=== PATIENT | female | born 1975 | race Caucasian/White ===

== ENCOUNTER 2018-07-19 07:57 | Day surgery (SDC) | payer BC ==
[2018-07-18 11:49] VITALS: BMI 19.3
[2018-07-19] MEDS ORDERED: MIDAZOLAM HCL 2 MG/2 ML SINGLE DOSE VIAL ONE (09:24)
[2018-07-19] MEDS ORDERED: PROPOFOL 20 ML ONE (09:24)
--- NOTE | 2018-07-19 09:24 | HP ---
History & Physical Update - History History: No Change (Missed Ab) - Physical Physical: No Change - Assessment Assessment: No Change - Plan Plan: No Change (Surgical Tx of missed Ab, suction/D&C)
[2018-07-19] MEDS ORDERED: CLINDAMYCIN 600 MG PREMIX BAG IVPB ONE (09:36)
[2018-07-19] MEDS ORDERED: CLINDAMYCIN PHOSPHATE 600 MG/4 ML VIAL ONE (09:38)
[2018-07-19] MEDS ORDERED: DEXAMETHASONE SOD PHOSPHATE 4 MG/1 ML VIAL ONE (09:42)
[2018-07-19] MEDS ORDERED: KETOROLAC TROMETHAMINE 30 MG/1 ML VIAL ONE (09:45)
--- NOTE | 2018-07-19 10:13 | OP ---
Operative Note - Note: Operative Date: 07/19/18 Pre-Operative Diagnosis: Missed Ab Operation: Suction/D&C, surgical Tx of missed Ab Findings: Small AV uterus, POC on suction curettage, no RPOC at end of surgery Post-Operative Diagnosis: Same as Pre-op Surgeon: Allan Kim Anesthesiologist/BUILDING RIGGER: Mary Beth Morgna Specimens Removed: POC Estimated Blood Loss (mls): 30 Blood Volume Replaced (mls): 0 Fluid Volume Replaced (mls): 750 Operative Report Dictated: Yes
[2018-07-19] MEDS ORDERED: oxyCODONE HCL 5 MG TABLET PO PRN (11:00)
[2018-07-19] MEDS ORDERED: LACTATED RINGERS SOLUTION 1,000 ML IV SCH (11:00)
[2018-07-19] MEDS ORDERED: ONDANSETRON 4 MG/2 ML VIAL IVPUSH PRN (11:00)
--- NOTE | 2018-07-19 11:01 | OP ---
DATE OF OPERATION: 07/19/2018 PREOPERATIVE DIAGNOSIS: Missed at 6-7 weeks of gestational age. POSTOPERATIVE DIAGNOSIS: Missed at 6-7 weeks of gestational age. PROCEDURE: Suction dilatation and curettage surgical treatment of missed . SURGEON: Kimmy Ruiz MD ASSEMBLER INSTALLER STRUCTURES: None. ANESTHESIOLOGIST: MaryB eth Morgan MD ANESTHESIA: General. COMPLICATIONS: None. ESTIMATED BLOOD LOSS: 30 mL. INTRAVENOUS FLUIDS: 750 mL. PATHOLOGY: Products of conception. FINDINGS: Small anteverted uterus with no pelvic or adnexal masses. The uterus is noted to be freely mobile within pelvic cavity. Products of conception were noted on suction curettage. There were no retained products of conception noted at the end of the procedure. PROCEDURE DESCRIPTION: The patient was met preoperatively. Risks, benefits, and alternatives of surgery were discussed in detail. All questions were answered. The patient was brought to the OR with the IV running. She was placed on the surgical table in the supine position. The general anesthesia was achieved without difficulty. The patient was then placed in a dorsal lithotomy position using adjustable Jamal stirrups. The patient was examined under anesthesia with the findings as described above. A timeout procedure was conducted as per standard protocol. The patient was then prepped and draped in the usual sterile fashion. A sterile speculum was introduced inside of the vagina with good visualization of the cervix. The cervix was grasped with a single-toothed tenaculum. The cervical os was dilated to accommodate the size 23-Perez dilator. A suction curette was then introduced gently into the uterine cavity. The suction curettage was used to remove the products of conception. All of the tissue was removed, and no retained products of conception were noted at the end of the procedure. Good hemostasis was noted. All of the instruments were removed from the patient. Sponge, lap, and instrument counts were correct. Once again, good hemostasis was noted. The patient was returned to supine position. She was then transferred to recovery room awakened in stable condition. KIMMY RUIZ M.D. [id number]
[2018-07-19 12:03] VITALS: BP 96/63; PULSE 65; TEMP 98.4
--- NOTE | 2018-07-23 13:59 | PATH ---
Surgical Pathology Report Patient Name: KM STRINGER Med. Rec. #: [id number] /Age/Gender: 1975 (Age: 43) / F Account: [id number] Location: [facility] SURGICAL Taken: 07/19/2018 Received: 07/19/2018 Reported: 07/23/2018 Physicians: Allan Kim M.D. Specimen(s) Received PRODUCTS OF CONCEPTION Clinical History Missed Final Diagnosis PRODUCTS OF CONCEPTION, SUCTION DILATION AND CURETTAGE: IMMATURE CHORIONIC VILLI CONSISTENT WITH PRODUCTS OF CONCEPTION. Electronically Signed Kiana Church M.D. Gross Description Received in formalin labeled "products of conception," is a 7.0 x 6.0 x 1.2 cm aggregate of boudreaux-brown soft tissue fragment. Villous tissue is identified. No definite somatic tissue is identified. A textiles sales representative portion is submitted in one cassette. /07/22/2018 saudi07/22/2018
== END 2018-07-19 12:08 | disposition home or self-care (01) ==
LOC: JASU-SURG 07:57
PROVIDERS: ATTEND Obstetrics & Gynecology
PROC: 10D17ZZ Extraction of Products of Conception, Retained, Via Natural or Artificial Opening (ICD-10-PCS; principal; 2018-07-19 09:00)
DX: O02.1 Missed abortion (principal); Z3A.01 Less than 8 weeks gestation of pregnancy
CPT/HCPCS: 86850; 86900; 86901; 88305-TC; 94760

== ENCOUNTER 2019-02-07 13:35 | Day surgery (SDC) | payer BC ==
[2019-02-06 17:29] VITALS: BMI 19.7
[2019-02-07] MEDS ORDERED: ONDANSETRON 4 MG/2 ML VIAL IVPUSH PRN (14:35)
[2019-02-07] MEDS ORDERED: PROMETHAZINE HCL 25 MG/1 ML VIAL IVPUSH PRN (14:35)
[2019-02-07] MEDS ORDERED: LACTATED RINGERS SOLUTION 1,000 ML IV SCH (14:45)
[2019-02-07] MEDS ORDERED: PROPOFOL 20 ML ONE (14:51)
[2019-02-07] MEDS ORDERED: MIDAZOLAM HCL 2 MG/2 ML SINGLE DOSE VIAL ONE (14:51)
[2019-02-07] MEDS ORDERED: LIDOCAINE HCL/PF 2% SDV 5ML VIAL ONE (14:52)
[2019-02-07] MEDS ORDERED: KETOROLAC TROMETHAMINE 30 MG/1 ML VIAL ONE (14:55)
[2019-02-07] MEDS ORDERED: DEXAMETHASONE SOD PHOSPHATE 4 MG/1 ML VIAL ONE (14:55)
[2019-02-07] MEDS ORDERED: SODIUM CHLORIDE 0.9% P/F 10 ML VIAL IJ ONE (15:13)
[2019-02-07] MEDS ORDERED: ceFAZolin SODIUM 1 GM VIAL ONE (15:13)
--- NOTE | 2019-02-07 15:16 | HP ---
Past Medical History - Primary Care Physician PCP:: Allan Kim - Admission Chief Complaint: 43yo female with missed Ab admitted for suction, D&C. History of Present Illness: Recurrent SAB. Ultrasound showed no FHR at EGA 6-7 wks History Source: Patient, Medical Record Limitations to Obtaining History: No Limitations - Past Medical History EVENT DECORATOR AND DESIGNER: No: Alzheimer's, CVA, Dementia, Migraine, Multiple Sclerosis, Peripheral Neuropathy, Parkinson's, Seizure, Syncope, TIA, Vertigo, Other Cardiovascular: No: AFIB, Aneurysm, Aortic Insufficiency, Aortic Stenosis, CAD, CHF, Deep Vein Thrombosis, HTN, Hyperlipdemia, MA, Mitral Insufficiency, Mitral Stenosis, Murmur, Pulmonary Hypertension, Other Pulmonary: No: Asthma, Bronchitis, Cancer, COPD, O2 Dependent, Pneumonia, Previously Intubated, Pulmonary Embolus, Pulmonary Fibrosis, Sleep Apnea, Other Gastrointestinal: No: Ascites, Cancer, Constipation, Crohn's Disease, Diverticulitis, Diverticulosis, Esophageal Varices, Gastritis, GERD, GI Bleed, Hemorrhoids, Hiatal Hernia, Inflamatory Bowel Disease, Irritable Bowel Disease, Pancreatitis, Peptic Ulcer Disease, Ulcerative Colitis, Other Hepatobiliary: No: Cirrhosis, Cholelithiasis, Cholecystitis, Choledocholithiasis , Hepatitis A, Hepatitis B, Hepatitis C, Other Renal/: No: Renal Failure, Renal Inusuff, BPH, Cancer, Hematuria, Hemodialysis , Neurogenic Bladder, Renal Calculi, UTI, Other Reproductive: No: Ectopic , Endometriosis, Fibroids, PID, Polycystic Ovary Syndrome, Postmenopausal, Other ...: 7 ...Para: 1 ...Spon : 6 Heme/Onc: No: Anemia, B12 Deficiency, Bleeding Disorder, Cancer, Current Chemotherapy, Current Radiation Therapy, Hemochromatosis, Hypercoaguable State, Myeloproliferative Synd, Sickle Cell Disease, Sickle Cell Trait, Thrombocytopenia, Other Infectious Disease: No: AIDS, C-Diff, Herpes Zoster, HIV, MRSA, STD's, Tuberculosis, VREF, Other Psych: No: Addictions, Anxiety, Bipolar, Depression, Panic, Psychosis, Schizophrenia, Other Musculoskeletal: No: Bursitis, Chronic low back pain, Hemiparesis, Hemiplegia, Osteoarthritis, Paraplegia, Other Rheumatology: No: Fibromyalgia, Gout, Lupus, Rheumatoid Arthritis, Sarcoidosis, Vasculitis, Other ENT: No: Allergic Rhinitis, Sinusitis, Other Endocrine: No: Rudolph's Disease, Prince's Disease, Diabetes Insipidus, Diabetes Mellitus, Hyperparathyroidism, Hyperthyroidism, Hypothyroidism, Osteopenia, SIADH, Other Dermatology: No: Basal Cell, Cellulitis, Eczema, Melanoma, Psoriasis, Squamous Cell, Other - Past Surgical History Past Surgical History: Yes: , Vein Stripping/Ligation Hx Myomectomy: No Hx Transabdominal Cerclage: No - Advance Directives Advance Directives: Yes: Living Will - Smoking History Smoking history: Never smoked Have you smoked in the past 12 months: No - Alcohol/Substance Use Hx Alcohol Use: Yes (occas) History of Substance Use: reports: None - Social History Usual Living Arrangement: Yes: With Spouse, With Child ADL: Independent History of Recent Travel: No Home Medications - Allergies Allergies/Adverse Reactions: Allergies Allergy/AdvReac Type Severity Reaction Status Date / Time Penicillins Allergy "stops Verified 02/06/19 17:32 breathing" - Home Medications Home Medications: Ambulatory Orders NK [No Known Home Medication] 02/06/19 Family Medical History Family Hx Cancer: Grandmother (maternal) Family Hx Cardiac Disorders: Father Review of Systems - Review of Systems Constitutional: reports: No Symptoms Eyes: reports: No Symptoms HENT: reports: No Symptoms Neck: reports: No Symptoms Cardiovascular: reports: No Symptoms Respiratory: reports: No Symptoms Gastrointestinal: reports: No Symptoms Genitourinary: reports: No Symptoms Breasts: reports: No Symptoms Reported Musculoskeletal: reports: No Symptoms Integumentary: reports: No Symptoms Neurological: reports: No Symptoms Endocrine: reports: No Symptoms Hematology/Lymphatic: reports: No Symptoms Psychiatric: reports: No Symptoms Pain Intensity: 0 Physical Exam-DESKTOP MANAGER Vital Signs: Vital Signs Temperature 98.3 F 02/07/19 13:55 Pulse Rate 61 02/07/19 13:55 Respiratory Rate 20 02/07/19 13:55 Blood Pressure 95/65 02/07/19 13:55 O2 Sat by Pulse Oximetry (%) 99 02/07/19 13:58 Constitutional: Yes: Well Nourished, No Distress, Calm Eyes: Yes: WNL, Conjunctiva Clear HENT: Yes: WNL, Atraumatic, Normocephalic Neck: Yes: WNL, Supple, Trachea Midline Cardiovascular: Yes: WNL, Regular Rate and Rhythm Respiratory: Yes: WNL, Regular, CTA Bilaterally Gastrointestinal: Yes: WNL, Normal Bowel Sounds, Soft ...Rectal Exam: Yes: Deferred Renal/: Yes: WNL Pelvis: Yes: WNL External Genitalia: Yes: Normal Internal Exam Deferred: No Vaginal Exam: Yes: Normal Cervix: Yes: Normal Uterus: Yes: Normal Adnexa: Normal: Left, Right Musculoskeletal: Yes: WNL Extremities: Yes: WNL Edema: No Integumentary: Yes: WNL Neurological: Yes: WNL, Alert, Oriented ...Motor Strength: WNL Psychiatric: Yes: WNL, Alert, Oriented Imaging - Results Ultrasound: Report Reviewed Assessment/Plan 43yo female with missed Ab admitted for suction, D&C. We had a long discussion about the risks, benefits, and alternatives of surgery. I explained the risks of infection, bleeding, scarring, amenorrhea, Asherman's syndrome, infertility, perforation, need for additional surgery to treat any complications, etc. The pt declined expectant management of missed ab or prostaglandin indx. She requested to proceed with surgery. I emphasized that all surgeries have risks and no guarantees can be provided.
[2019-02-07] MEDS ORDERED: ceFAZolin SODIUM 1 GM VIAL IVPB ONE (15:19)
--- NOTE | 2019-02-07 16:06 | OP ---
Operative Note - Note: Operative Date: 02/07/19 Pre-Operative Diagnosis: Missed Ab Operation: Suction, D&C (<14wk) Findings: Small uterus, no pelvic or adnexal masses. No bleeding. Post-Operative Diagnosis: Same as Pre-op Surgeon: Allan Kim Anesthesiologist/LOW PRESSURE FIRER: Keny Love Anesthesia: General Specimens Removed: POC Estimated Blood Loss (mls): 30 Blood Volume Replaced (mls): 0 Fluid Volume Replaced (mls): 200 Operative Report Dictated: Yes
[2019-02-07 17:28] VITALS: BP 96/56; PULSE 68; TEMP 97.8
--- NOTE | 2019-02-08 07:29 | OP ---
DATE OF OPERATION: 02/07/2019 PREOPERATIVE DIAGNOSIS: Missed . POSTOPERATIVE DIAGNOSIS: Missed . OPERATION: Suction dilation and curettage ( under 14 weeks), surgical treatment of missed . SURGEON: Kimmy Ruiz MD ANESTHESIOLOGIST: Keny Love MD ANESTHESIA: General. COMPLICATIONS: None. ESTIMATED BLOOD LOSS: 30 mL. INTRAVENOUS FLUIDS: 200 mL. PATHOLOGY: Products of conception. FINDINGS: Examination under anesthesia revealed a small uterus with no pelvic or adnexal masses. The cervical os was closed. There was no vaginal bleeding. Suction curettage revealed products of conception consistent with . No retained products of conception were noted at the end of the procedure. PROCEDURE: The patient was met preoperatively. Risks, benefits, alternatives of surgery were discussed at least. The consent form was reviewed and explained. The patient verbalized her understanding. The patient requested to proceed with the surgery. The patient was brought to the OR with the IV running. She was placed on a surgical table in a supine position. The general anesthesia was achieved without difficulty. The patient was then placed in a dorsal lithotomy position using adjustable Jamal stirrups. She was examined under anesthesia with the findings as described above. The time-out was conducted as per standard protocol. The patient was prepped and draped in the usual sterile fashion. A sterile speculum was introduced inside the vagina with good visualization of the cervix. The cervix was grasped and stabilized with the single-tooth tenaculum. The cervical os was dilated to accommodate a size 19 Perez dilator. A 6-mm suction curette was then used to remove the products of conception with the vacuum curettage. All of the tissue was removed. The vacuum curette was then removed from the patient. An empty uterine cavity was confirmed using a sharp curette. There were no retained products of conception. At this point, all of the instruments were removed from the patient. Good hemostasis was noted. Sponge, lap, and instrument counts were correct. The patient was returned to supine position. She was transferred to recovery room in stable condition and awake. KIMMY RUIZ M.D. [id number]
--- NOTE | 2019-02-10 17:56 | PATH ---
Surgical Pathology Report Patient Name: KM STRINGER Med. Rec. #: [id number] /Age/Gender: 1975 (Age: 43) / F Account: [id number] Location: [facility] SURGICAL Taken: 02/07/2019 Received: 02/07/2019 Reported: 02/10/2019 Physicians: Allan Kim M.D. Specimen(s) Received PRODUCTS OF CONCEPTION Clinical History Missed Recurrent losses Final Diagnosis PRODUCTS OF CONCEPTION, SUCTION DILATION AND CURETTAGE: IMMATURE CHORIONIC VILLI AND DECIDUA CONSISTENT WITH PRODUCTS OF CONCEPTION. CHROMOSOMAL STUDIES ARE PENDING AND WILL BE REPORTED SEPARATELY AN ADDENDUM. Electronically Signed Kiana Church M.D. Gross Description Received fresh labeled "products of conception," is a 5 x 3 x 1 cm aggregate of buodreaux red soft tissue fragments. Villous tissue is identified. No definite somatic tissue is identified. Estate Planning Attorney portion is placed in RPMI solution and sent for genetic studies. A freight representative portion is submitted in one cassette
== END 2019-02-07 17:30 | disposition home or self-care (01) ==
LOC: JASU-SURG 13:35
PROVIDERS: ATTEND Obstetrics & Gynecology
PROC: 10D17ZZ Extraction of Products of Conception, Retained, Via Natural or Artificial Opening (ICD-10-PCS; principal; 2019-02-07 15:00)
DX: O02.1 Missed abortion (principal)
CPT/HCPCS: 86850; 86900; 86901; 88305-TC; 94760